=== PATIENT | female | born 1955 | race African-American/Black ===

== ENCOUNTER 2020-03-12 05:52 | Inpatient (IN) | payer MEDICARE ==
[~2020-03-12] VITALS: Ht 157.5 cm; Wt 90.7 kg
[2020-03-12 12:23] LABS: HEMOGLOBIN 11.5 gm/dl (12.3-15.3); RED BLOOD COUNT 4.27 M/UL (4.00-5.10); WHITE BLOOD COUNT 8.1 K/UL (4.5-11.0)
[2020-03-12] MEDS ORDERED: ATORVASTATIN CA40 MG PO (13:07)
[2020-03-12] MEDS ORDERED: METOPROLOL SUC100 MG PO (13:08)
[2020-03-12] MEDS ORDERED: GLIMEPIRIDE4 MG PO (13:09)
[2020-03-12] MEDS ORDERED: COZAAR 50MG TAB50 MG PO (13:10)
[2020-03-12] MEDS ORDERED: GLUCOPHAGE 500500 MG PO (13:11)
[2020-03-12] MEDS ORDERED: CLARITIN 10MG T10 MG PO (13:14)
[2020-03-12] MEDS ORDERED: CENTRUM COMPLE1 EACH PO (13:17)
[2020-03-12] MEDS ORDERED: ZETIA10 MG PO (13:27)
[2020-03-12] MEDS ORDERED: HYDROCODON-ACE1 EAC6 PO (13:45)
[2020-03-13 00:56] LABS: HEMOGLOBIN 10.6 gm/dl (12.3-15.3); RED BLOOD COUNT 4.01 M/UL (4.00-5.10); WHITE BLOOD COUNT 8.7 K/UL (4.5-11.0)
[2020-03-13 13:49] LABS: HEMOGLOBIN 10.2 gm/dl (12.3-15.3); RED BLOOD COUNT 3.78 M/UL (4.00-5.10)
[2020-03-13 22:47] LABS: HEMOGLOBIN 10.4 gm/dl (12.3-15.3)
[2020-03-14 06:39] LABS: HEMOGLOBIN 9.1 gm/dl (12.3-15.3); WHITE BLOOD COUNT 8.4 K/UL (4.5-11.0)
[2020-03-14 06:44] LABS: RED BLOOD COUNT 3.3 M/UL (4.00-5.10)
[2020-03-14 14:17] LABS: HEMOGLOBIN 9.8 gm/dl (12.3-15.3)
--- NOTE | 2020-03-14 17:01 | NUR ---
PATIENT TRANSFERRED TO ROOM 4102, WITH BELONGINGS. NO S/SX OF DISTRESS NOTED. WILL CONTINUE TO ASSESS. CALL LIGHT WITHIN REACH.
[2020-03-14 22:27] LABS: HEMOGLOBIN 8.7 gm/dl (12.3-15.3)
[2020-03-15 06:35] LABS: HEMOGLOBIN 8.4 gm/dl (12.3-15.3); RED BLOOD COUNT 3.08 M/UL (4.00-5.10); WHITE BLOOD COUNT 8.8 K/UL (4.5-11.0)
[2020-03-15] MEDS ORDERED: CLOPIDOGREL75 MG PO (10:20)
[2020-03-15] MEDS ORDERED: GLUCOPHAGE 500500 MG PO (10:20)
[2020-03-15] MEDS ORDERED: ASPIRIN EC81 MG PO (10:20)
[2020-03-15] MEDS ORDERED: GLIMEPIRIDE4 MG PO (10:20)
[2020-03-15 11:58] LABS: HEMOGLOBIN 8.5 gm/dl (12.3-15.3)
[2020-03-16 05:20] LABS: HEMOGLOBIN 8.2 gm/dl (12.3-15.3); RED BLOOD COUNT 3.01 M/UL (4.00-5.10); WHITE BLOOD COUNT 8.7 K/UL (4.5-11.0)
== END 2020-03-16 15:50 | disposition home or self-care (01) | DRG 247 ==
LOC: PROG CARE 05:52 → MED SURG 4 03-14 15:32
PROVIDERS: Family Medicine; Internal Medicine Interventional Cardiology; Physician Assistant; Physician Assistant Medical; ADMIT Internal Medicine
PROC: B2151ZZ Fluoroscopy of Left Heart using Low Osmolar Contrast (ICD-10-PCS; principal; 2020-03-13)
PROC: 4A023N7 Measurement of Cardiac Sampling and Pressure, Left Heart, Percutaneous Approach (ICD-10-PCS; principal; 2020-03-13)
PROC: B2111ZZ Fluoroscopy of Multiple Coronary Arteries using Low Osmolar Contrast (ICD-10-PCS; principal; 2020-03-13)
PROC: B24BYZZ Ultrasonography of Heart with Aorta using Other Contrast (ICD-10-PCS; principal; 2020-03-13)
PROC: 027034Z Dilation of Coronary Artery, One Artery with Drug-eluting Intraluminal Device, Percutaneous Approach (ICD-10-PCS; principal; 2020-03-13)
DX: I21.4 Non-ST elevation (NSTEMI) myocardial infarction (principal); I97.630 Postprocedural hematoma of a circulatory system organ or structure following a cardiac catheterization; D62 Acute posthemorrhagic anemia; N17.9 Acute kidney failure, unspecified; I25.10 Atherosclerotic heart disease of native coronary artery without angina pectoris; I10 Essential (primary) hypertension; Z20.822 Contact with and (suspected) exposure to COVID-19; R00.1 Bradycardia, unspecified; Y84.0 Cardiac catheterization as the cause of abnormal reaction of the patient, or of later complication, without mention of misadventure at the time of the procedure; E78.5 Hyperlipidemia, unspecified; E11.9 Type 2 diabetes mellitus without complications; Z79.84 Long term (current) use of oral hypoglycemic drugs; E66.9 Obesity, unspecified; M79.7 Fibromyalgia; K80.20 Calculus of gallbladder without cholecystitis without obstruction; Z79.02 Long term (current) use of antithrombotics/antiplatelets; Z79.82 Long term (current) use of aspirin; N99.0 Postprocedural (acute) (chronic) kidney failure
CPT/HCPCS: ECHO; 36415; 80048; 80053; 80061; 82550; 82553; 82962; 83036; 83735; 84439; 84443; 84484; 85014; 85018; 85025; 85027; 85347; 85610; 85730; 86850; 86900; 86901; 86920; 93005; 93306; 97162; 99152; 99153; C1725; C1760; C1769; C1874; C1887; C9600; J0461; J1265; J1644; J2250; J2405; J2930; J3010; J7030; Q9963; Q9967

== ENCOUNTER 2020-05-25 19:21 | Inpatient (IN) | payer MEDICARE ==
[~2020-05-25] VITALS: Ht 160 cm; Wt 102.1 kg
[~2020-05-25 19:21] MED LIST: ASPIRIN EC81 MG PO; ATORVASTATIN CA40 MG PO; CENTRUM COMPLE1 EACH PO; CLARITIN 10MG T10 MG PO; CLOPIDOGREL75 MG PO; COZAAR 50MG TAB50 MG PO; GLIMEPIRIDE4 MG PO; GLUCOPHAGE 500500 MG PO; HYDROCODON-ACE1 EAC6 PO; METOPROLOL SUC100 MG PO; ZETIA10 MG PO
--- NOTE | 2020-05-26 03:17 | NUR ---
PATIENT HAD EXTERNAL CHI PLACED AND REPOSITIONED AROUND 2215. STILL NO URINE OUTPUT AT 0115. MD NOTIFIED AND I ASKED IF WE COULD INSERT AN INDWELLING CHI CATHETER. PATIENT REFUSED AND WANTS TO KEEP IN THE EXTERNAL CHI. PATIENT STATES "I HAVE NOT DRANK A LOT, CAN I TRY IT A LITTLE LONGER?"
[2020-05-26 05:47] LABS: HEMOGLOBIN 10.6 gm/dl (12.3-15.3); RED BLOOD COUNT 3.94 M/UL (4.00-5.10); WHITE BLOOD COUNT 4.4 K/UL (4.5-11.0)
[2020-05-26] MEDS ORDERED: LOSARTAN POTAS100 MG PO (09:11)
[2020-05-26] MEDS ORDERED: GABAPENTIN300 MG PO (09:12)
[2020-05-26] MEDS ORDERED: METFORMIN HCL1000 MG PO (09:13)
[2020-05-26] MEDS ORDERED: GLIMEPIRIDE4 MG PO (09:17)
[2020-05-26] MEDS ORDERED: NITROGLYCERIN0.4 MG SL (13:35)
[2020-05-27 02:44] LABS: HEMOGLOBIN 10.1 gm/dl (12.3-15.3); RED BLOOD COUNT 3.79 M/UL (4.00-5.10)
[2020-05-27 02:48] LABS: WHITE BLOOD COUNT 8.8 K/UL (4.5-11.0)
[2020-05-28 02:59] LABS: HEMOGLOBIN 10.5 gm/dl (12.3-15.3); RED BLOOD COUNT 3.99 M/UL (4.00-5.10); WHITE BLOOD COUNT 8.7 K/UL (4.5-11.0)
[2020-05-29 04:22] LABS: HEMOGLOBIN 10.2 gm/dl (12.3-15.3); RED BLOOD COUNT 3.84 M/UL (4.00-5.10); WHITE BLOOD COUNT 10.4 K/UL (4.5-11.0)
[2020-05-30 05:52] LABS: HEMOGLOBIN 10.3 gm/dl (12.3-15.3); RED BLOOD COUNT 3.82 M/UL (4.00-5.10); WHITE BLOOD COUNT 13.9 K/UL (4.5-11.0)
[2020-05-30 09:14] LABS: COMPLEMENT C3, SERUM 97 mg/dL (82-167)
[2020-05-31 03:03] LABS: HEMOGLOBIN 10.1 gm/dl (12.3-15.3); RED BLOOD COUNT 3.84 M/UL (4.00-5.10); WHITE BLOOD COUNT 13.3 K/UL (4.5-11.0)
[2020-06-01 04:33] LABS: HEMOGLOBIN 10.5 gm/dl (12.3-15.3); RED BLOOD COUNT 3.97 M/UL (4.00-5.10); WHITE BLOOD COUNT 14.8 K/UL (4.5-11.0)
[2020-06-01 15:11] LABS: A/G RATIO 0.6 (0.7-1.7); ALBUMIN 2.5 g/dL (2.9-4.4); ALPHA-1-GLOBULIN 0.3 g/dL (0.0-0.4); ALPHA-2-GLOBULIN 1.2 g/dL (0.4-1.0); ANTI-DSDNA ANTIBODIES <1 IU/mL (0-9); BETA GLOBULIN 0.8 g/dL (0.7-1.3); GAMMA GLOBULIN 1.9 g/dL (0.4-1.8); GLOBULIN, TOTAL 4.2 g/dL (2.2-3.9); M-SPIKE Not Observed g/dL (Not Observed); PROTEIN, TOTAL, SERUM 6.7 g/dL (6.0-8.5)
[2020-06-02 04:53] LABS: HEMOGLOBIN 10.2 gm/dl (12.3-15.3); RED BLOOD COUNT 3.89 M/UL (4.00-5.10)
[2020-06-02 05:05] LABS: WHITE BLOOD COUNT 20.3 K/UL (4.5-11.0)
[2020-06-02 15:11] LABS: ANTIMYELOPEROXIDASE (MPO) ABS <9.0 U/mL (0.0-9.0); ANTIPROTEINASE 3 (PR-3) ABS <3.5 U/mL (0.0-3.5); ATYPICAL PANCA <1:20 titer (Neg:<1:20); CYTOPLASMIC (C-ANCA) <1:20 titer (Neg:<1:20)
[2020-06-03 04:26] LABS: HEMOGLOBIN 10.2 gm/dl (12.3-15.3); RED BLOOD COUNT 3.86 M/UL (4.00-5.10)
[2020-06-03 04:28] LABS: WHITE BLOOD COUNT 14.8 K/UL (4.5-11.0)
[2020-06-04 04:18] LABS: HEMOGLOBIN 10.4 gm/dl (12.3-15.3); RED BLOOD COUNT 3.99 M/UL (4.00-5.10)
[2020-06-04 04:22] LABS: WHITE BLOOD COUNT 17.9 K/UL (4.5-11.0)
[2020-06-05 03:38] LABS: HEMOGLOBIN 10.2 gm/dl (12.3-15.3); RED BLOOD COUNT 3.96 M/UL (4.00-5.10); WHITE BLOOD COUNT 20.1 K/UL (4.5-11.0)
[2020-06-06 02:53] LABS: HEMOGLOBIN 9.9 gm/dl (12.3-15.3); RED BLOOD COUNT 3.66 M/UL (4.00-5.10); WHITE BLOOD COUNT 18.9 K/UL (4.5-11.0)
--- NOTE | 2020-06-06 05:49 | NUR ---
PATIENT HAS BEEN COMPLAINING OF LEFT ARM PAIN ALL NIGHT. PATIENT LEFT ARM IS SWOLLEN AND BRUISED, PT STATES THAT DR PARIKH ORDERED AN ULTRASOUND AT 1230 YESTERDAY AND TOLD A RESPIRATORY THERAPIST BUT NO ORDERS WERE PUT IN AND THIS WAS NOT DISCLOSED IN REPORT. PATIENT'S LOWER LEFT ARM HAS GRADUALLY BECOME MORE SWOLLEN THE NIGHT HAS PROGRESSED. ULTRASOUND IS SCHEDULED FOR THIS AM. COLD COMPRESSES HAVE BEEN APPLIED, PT HAS BEEN MEDICATED FOR PAIN. REBAR FABRICATOR PHYSICIAN NOTIFIED OF LEFT ARM SWELLING. WILL REPORT TO ONCOMING SHIFT.
--- NOTE | 2020-06-06 10:00 | NUR ---
ULTRASOUND OF LEFT ARM DONE
--- NOTE | 2020-06-06 11:00 | NUR ---
DR CONTE AT BEDSIDE, AWARE OF PT'S LEFT ARM, CONSULTING VASCULAR SURGEON WHOM REFERRED HIM TO CONSULT ORTHO.
--- NOTE | 2020-06-06 16:00 | NUR ---
PT TAKEN DOWN TO OR FOR FASCIOTOMY OF LEFT ARM DUE TO COMPARTMENT SYNDROME
--- NOTE | 2020-06-06 18:15 | NUR ---
PT BACK FROM SURGERY, DR ZACARIAS' AT BEDSIDE, INSTRUCTED TO NOT RAISE THE LEFT ARM, IT IS TO BE KEPT LOWERED OR MAY PLACE ON 1 PILLOW IF PT SITTING UP, SEVERAL INCISIONS MADE TO BOTH FRONT AND BACK OF ARM, MD PLANS TO TAKE PT BACK TO OR ON MONDAY FOR DRESSING CHANGE.
--- NOTE | 2020-06-06 19:45 | NUR ---
1944 RECEIVED FROM PCU AFTER DRAPERY ROD ASSEMBLER WAS CALLED.DR KNOX PRESENT. PT WAS ORALLY INTUBATED PRIOR TO ARRIVAL TO ICU. DR. CONTE AND NOTIFIED. CENTRAL LINE WAS PLACED BY . 2039 PT WAS NOTED TO BE IN PEA. CODE CALLED ( SEE CODE SHEET) [address] HOLLINS AT BEDSIDE , ARTERIAL LINE PLACED IN RIGHT WRIST BY DR HOLLINS. PRBC ,FFP , PLATELETS WERE TRANSFUSED ORDERED (SEE BLOOD SHEETS) 2149 DR. ZACARIAS' NOTIFIED UPDATE GIVEN . 2249 DR ZACARIAS' PRESENT, PATIENT TRANSPORTED TO OR FOR BLEEDING FROM LEFT FASCIOTOMY SITE. PATIENT WAS RETURNED FROM OR RIGHT ARM BANDAGE IN PLACE. PRBC AND FFP TO CONTINUE INFUSING ORDERED. 0130 TEMP 91.2 CORE TEMP . BEAR HUGGER WARMING BLANKET USED TO WARM PATIENT. 0503 NO PULSE, PEA NOTED. CODE CALLED. [address] HOLLINS SPOKE WITH SON ( BRIAN ) UPDATE WAS GIVEN , PATIENT WAS ORDERED DNR STATUS . 0610 PATIENT . ARMANDO WAS NOTIFIED AND RULED OUT. SON NOTIFIED AND WILL RETURN CALL TO DECIDE HOME TO RELEASE BODY.
[2020-06-06 20:19] LABS: RED BLOOD COUNT 1.57 M/UL (4.00-5.10)
[2020-06-06 20:21] LABS: HEMOGLOBIN 4.1 gm/dl (12.3-15.3); WHITE BLOOD COUNT 31.5 K/UL (4.5-11.0)
[2020-06-06 22:07] LABS: HEMOGLOBIN 6.5 gm/dl (12.3-15.3)
[2020-06-07 01:00] LABS: HEMOGLOBIN 7.6 gm/dl (12.3-15.3)
[2020-06-07 01:14] LABS: RED BLOOD COUNT 2.61 M/UL (4.00-5.10); WHITE BLOOD COUNT 22.8 K/UL (4.5-11.0)
[2020-06-07 04:50] LABS: WHITE BLOOD COUNT 23.8 K/UL (4.5-11.0)
[2020-06-07 05:16] LABS: RED BLOOD COUNT 1.4 M/UL (4.00-5.10)
== END 2020-06-07 06:10 | disposition expired | DRG 981 ==
LOC: CCU 21:16 → PROG CARE 21:16 → CCU 06-06 22:35
PROVIDERS: Emergency Medicine; Internal Medicine; Internal Medicine Nephrology; Internal Medicine Pulmonary Disease; ADMIT Internal Medicine
PROC: XW033E5 Introduction of Remdesivir Anti-infective into Peripheral Vein, Percutaneous Approach, New Technology Group 5 (ICD-10-PCS; principal; 2020-05-25)
PROC: 8E0ZXY6 Isolation (ICD-10-PCS; 2020-05-25)
PROC: 30233K1 Transfusion of Nonautologous Frozen Plasma into Peripheral Vein, Percutaneous Approach (ICD-10-PCS; 2020-05-31)
PROC: 30233N1 Transfusion of Nonautologous Red Blood Cells into Peripheral Vein, Percutaneous Approach (ICD-10-PCS; 2020-06-04)
PROC: 0KNB0ZZ Release Left Lower Arm and Wrist Muscle, Open Approach (ICD-10-PCS; 2020-06-06)
PROC: 05HM33Z Insertion of Infusion Device into Right Internal Jugular Vein, Percutaneous Approach (ICD-10-PCS; 2020-06-06)
PROC: B543ZZA Ultrasonography of Right Jugular Veins, Guidance (ICD-10-PCS; 2020-06-06)
PROC: 05HY33Z Insertion of Infusion Device into Upper Vein, Percutaneous Approach (ICD-10-PCS; 2020-06-06)
PROC: 5A1945Z Respiratory Ventilation, 24-96 Consecutive Hours (ICD-10-PCS; 2020-06-06)
PROC: 0BH17EZ Insertion of Endotracheal Airway into Trachea, Via Natural or Artificial Opening (ICD-10-PCS; 2020-06-06)
PROC: 30233R1 Transfusion of Nonautologous Platelets into Peripheral Vein, Percutaneous Approach (ICD-10-PCS; 2020-06-06)
PROC: 5A12012 Performance of Cardiac Output, Single, Manual (ICD-10-PCS; 2020-06-06)
PROC: 03HY32Z Insertion of Monitoring Device into Upper Artery, Percutaneous Approach (ICD-10-PCS; 2020-06-06)
PROC: 01N50ZZ Release Median Nerve, Open Approach (ICD-10-PCS; 2020-06-07)
PROC: XW033H5 Introduction of Tocilizumab into Peripheral Vein, Percutaneous Approach, New Technology Group 5 (ICD-10-PCS; 2020-06-07)
PROC: 30233M1 Transfusion of Nonautologous Plasma Cryoprecipitate into Peripheral Vein, Percutaneous Approach (ICD-10-PCS; 2020-06-07)
PROC: 3E033XZ Introduction of Vasopressor into Peripheral Vein, Percutaneous Approach (ICD-10-PCS; 2020-06-07)
DX: U07.1 COVID-19 (principal); A41.9 Sepsis, unspecified organism; J12.82 Pneumonia due to coronavirus disease 2019; J96.01 Acute respiratory failure with hypoxia; R65.21 Severe sepsis with septic shock; D65 Disseminated intravascular coagulation [defibrination syndrome]; I26.99 Other pulmonary embolism without acute cor pulmonale; M96.831 Postprocedural hemorrhage of a musculoskeletal structure following other procedure; T79.A12A Traumatic compartment syndrome of left upper extremity, initial encounter; I82.4Z1 Acute embolism and thrombosis of unspecified deep veins of right distal lower extremity; N17.9 Acute kidney failure, unspecified; E66.2 Morbid (severe) obesity with alveolar hypoventilation; I82.441 Acute embolism and thrombosis of right tibial vein; I25.10 Atherosclerotic heart disease of native coronary artery without angina pectoris; R57.1 Hypovolemic shock; E87.5 Hyperkalemia; Z66 Do not resuscitate; D53.9 Nutritional anemia, unspecified; E11.40 Type 2 diabetes mellitus with diabetic neuropathy, unspecified; I46.9 Cardiac arrest, cause unspecified; E11.65 Type 2 diabetes mellitus with hyperglycemia; T38.0X5A Adverse effect of glucocorticoids and synthetic analogues, initial encounter; E78.5 Hyperlipidemia, unspecified; R57.8 Other shock; E86.0 Dehydration; N20.0 Calculus of kidney; N18.30 Chronic kidney disease, stage 3 unspecified; Y83.8 Other surgical procedures as the cause of abnormal reaction of the patient, or of later complication, without mention of misadventure at the time of the procedure; I12.9 Hypertensive chronic kidney disease with stage 1 through stage 4 chronic kidney disease, or unspecified chronic kidney disease; K21.9 Gastro-esophageal reflux disease without esophagitis; Z79.4 Long term (current) use of insulin; Z68.39 Body mass index [BMI] 39.0-39.9, adult; Y92.89 Other specified places as the place of occurrence of the external cause
CPT/HCPCS: ECHO; 31500; 36415; 36600; 71045; 78580; 80048; 80053; 80061; 80202; 81001; 82043; 82140; 82550; 82553; 82570; 82607; 82728; 82746; 82803; 82962; 83036; 83520; 83540; 83550; 83605; 83615; 83735; 83874; 83880; 83930; 84100; 84155; 84156; 84165; 84439; 84443; 84484; 84550; 85014; 85018; 85025; 85027; 85362; 85379; 85384; 85610; 85652; 85730; 86140; 86160; 86225; 86256; 86850; 86900; 86901; 86920; 86927; 87040; 87070; 87081; 87205; 92950; 93005; 93306; 93931; 93970; 94002; 94003; 94640; 94660; 94664; 94760; 97110; 97110-GP-CQ; 97116-GP-CQ; 97162; 97530; 97530-GP-CQ; A9540; C9113; J0171; J0360; J0690; J0692; J0696; J1100; J1650; J1940; J2185; J2250; J2310; J2370; J2704; J2720; J3010; J3370; J7030; J7040; J7070; J7120; P9012; P9016; P9017; P9037; P9045